=== PATIENT | female | born 1985 | race American Indian/Alaskan Native ===

== ENCOUNTER 2022-08-17 06:41 | Emergency (ER) | payer OTHER ==
[2022-08-17 07:53] VITALS: BP 166/119
--- NOTE | 2022-08-17 08:28 | Emergency Department Report ---
ED Rash HPI - HPI Chief Complaint: Skin/Abscess/Foreign Body Stated Complaint: INGROWN HAIR Time Seen by Provider: 08/17/22 08:14 Duration: 3 Days Location: Other Suspected Cause: Other Rash Symptoms: No Itching, No Facial Swelling, No Tongue/Oral Swelling, No Breathing Difficulties, No Choking Sensation, No Wheezing/Dyspnea, No Peeling, No Blistering, No Fever, No Lightheaded, No Malaise, No Myalgias Severity: mild Other History: 36 YO COMES TO ER WITH INGROWN HAIR OF MONS PUBIS P SHAVING. NO DRAINAGE. PAINFUL ED Review of Systems ROS: Stated complaint: INGROWN HAIR Other details as noted in HPI Comment: All other systems reviewed and negative ED Past Medical Hx - Past Medical History Previous Medical History?: Yes Hx Hypertension: Yes Hx Psychiatric Treatment: Yes Hx Asthma: Yes - Surgical History Past Surgical History?: No - Family History Family history: no significant - Social History Smoking Status: Never Smoker Substance Use Type: Alcohol - Medications Home Medications: Home Medications Medication Instructions Recorded Confirmed Last Taken Type cephALEXin [Keflex] 500 mg PO Q12HR #20 cap 08/17/22 Unknown Rx Rash Exam - Exam General: Vital signs noted. No distress. Alert and acting appropriately. HEENT: No Periorbital Edema, No Conjuctival Injection, No Chemosis, No Perioral Edema, No Tongue Edema, No Uvular Edema, No Compromised Airway, No Drooling Lungs: Yes Good Air Exchange (Normal Breath Sounds), No Wheezes, No Ronchi, No Stridor, No Cough, No Labored Respirations, No Retractions, No Use of Accessory Muscles, No Other Abnormal Lung Sounds Heart: Yes Regular, No Murmur Skin: Yes Other Other: Positive: Abdomen Normal, Neurologic Normal, Musculoskeletal Normal ED Course Vital Signs 08/17/22 08/17/22 07:52 07:53 Temperature 98.3 F Pulse Rate 83 Respiratory 18 Rate Blood Pressure 166/119 O2 Sat by Pulse 99 Oximetry ED Medical Decision Making - Medical Decision Making NO ABSCESS GOLF BALL SIZE AREA OF RED AND INFLAMMED TISSUE NO FEVER NO S/S SEPSIS PT NON ILL ON EXAM EDUCATED ON SKIN CARE DC HOME WITH DC PLAN OF CARE INCLUDING DIET, MEDS, ACTIVITY AND FOLLOW UP PT VERBALIZES UNDERSTANDING OF PLAN OF CARE Vital Signs 08/17/22 08/17/22 08/17/22 07:52 07:53 09:19 Temperature 98.3 F Pulse Rate 83 Respiratory 18 Rate Blood Pressure 166/119 O2 Sat by Pulse 99 100 Oximetry - Differential Diagnosis INGROWN HAIR Critical care attestation.: If time is entered above; I have spent that time in minutes in the direct care of this critically ill patient, excluding procedure time. ED Disposition Clinical Impression: Ingrown hair, Elevated blood pressure reading Disposition: HOME / SELF CARE / HOMELESS Is pt being admited?: No Does the pt Need Aspirin: No Condition: Stable Instructions: Ingrown Hair Additional Instructions: warm soaks in epsom salt baths med as ordered today motrin or tylenol for pain follow up with pcp next week referral below diet and activity as tolerated monitor your blood pressure it was high today likely in part to pain Prescriptions: cephALEXin [Keflex] 500 mg PO Q12HR #20 cap Referrals: JAMES MORENO MD [Primary Care Provider] - 3-5 Days Forms: Work/School Release Form(ED) Time of Disposition: 08:52
== END 2022-08-17 09:21 | disposition home or self-care (01) ==
LOC: ED 06:41
DX: L73.8 Other specified follicular disorders (principal); R03.0 Elevated blood-pressure reading, without diagnosis of hypertension; I10 Essential (primary) hypertension; J45.909 Unspecified asthma, uncomplicated; Z72.89 Other problems related to lifestyle; Z79.899 Other long term (current) drug therapy
CPT/HCPCS: 99282